=== PATIENT | female | born 1970 | race African-American/Black ===

== ENCOUNTER → 2017-11-07 | Outpatient (CLI) | payer OTHER ==
[~2017-11-07] MED LIST: ALBUTEROL INHAL17 GM IH; ALBUTEROL2.5 MG/0.1 IH; ALTOPREV20 M1 PO; COLACE 100 MG100 MG PO; FLONASE 0.05%50 MCG NASAL; GLUCOPHAGE500 MG PO; IBUPROFEN 600600 M1 PO; LISINOPRIL-HCT1 EAC1 PO; NORCO 5-325 TA1 EACH PO; PRINIVIL20 MG PO; REGLAN 5 MG TAB5 MG PO; RELAFEN500 MG PO; VENTOLIN HFA 1818 GM INH; VITAMIN C120 G1; ZOCOR40 MG PO
== END ==
LOC: RAD 08:17
DX: Z12.31 Encounter for screening mammogram for malignant neoplasm of breast (principal); I10 Essential (primary) hypertension; E78.5 Hyperlipidemia, unspecified; K21.9 Gastro-esophageal reflux disease without esophagitis

== ENCOUNTER → 2018-12-31 | Outpatient (CLI) | payer BC, OTHER | LOC: RAD 07:57 | DX: Z12.31 Encounter for screening mammogram for malignant neoplasm of breast (principal) ==